=== PATIENT | male | born 1985 | race Caucasian/White ===

== ENCOUNTER 2019-01-10 21:29 | Emergency (ER) | payer OTHER ==
[~2019-01-10] VITALS: Ht 182.9 cm; Wt 113.4 kg
[~2019-01-10 21:29] MED LIST: ACETAMINOPHEN-1 EAC1 PO; ALPRAZOLAM ER1 MG PO; Alprazolam 1mg PO; CELEXA40 MG PO; CIPROFLOXACIN500 M1 PO; CLEOCIN HCL150 MG PO; COLACE 100 MG100 MG PO; ENDOCET 5-3251 EACH PO; FIBERCON625 M1 PO; FLOMAX PO; IBUPROFEN 200200 M1 PO; IMIPRAMINE; MIRALAX255 GM PO; NORCO 5-325 TA1 EACH PO; PHENERGAN50 MG RECTAL; RESTORIL15 MG; TIZANIDINE HCL4 MG PO; VITCB500GO PO; trazadone PO
[2019-01-10] MEDS ORDERED: ADDERALL 30 MG30 MG PO (21:45)
[2019-01-10] MEDS ORDERED: AMBIEN 10 MG TA10 MG PO (21:45)
[2019-01-10] MEDS ORDERED: PREDNISONE50 MG PO (22:26)
[2019-01-10] MEDS ORDERED: PERMETHRIN60 GM TOP (22:26)
[2019-01-10 22:36] VITALS: BP 143/93
== END 2019-01-10 22:42 | disposition home or self-care (01) ==
LOC: M.ERS 21:29
DX: T14.8XXA Other injury of unspecified body region, initial encounter (principal); M54.9 Dorsalgia, unspecified; G89.29 Other chronic pain; F41.9 Anxiety disorder, unspecified; F32.9 Major depressive disorder, single episode, unspecified; Z90.49 Acquired absence of other specified parts of digestive tract; Z88.0 Allergy status to penicillin; W57.XXXA Bitten or stung by nonvenomous insect and other nonvenomous arthropods, initial encounter; Y93.89 Activity, other specified; Y92.038 Other place in apartment as the place of occurrence of the external cause; Y99.8 Other external cause status